=== PATIENT | male | born 1965 | race Caucasian/White ===

== ENCOUNTER 2020-10-18 09:00 | Outpatient (RCR) | payer MEDICARE, MEDICAID, SELFPAY | END 2020-10-20 23:55 | disposition home or self-care (01) | LOC: HO.PAOS 09:00 | PROVIDERS: Visit Provider Psychologist | DX: F43.10 Post-traumatic stress disorder, unspecified (principal); F42.9 Obsessive-compulsive disorder, unspecified; F31.75 Bipolar disorder, in partial remission, most recent episode depressed | CPT/HCPCS: 90834 ==

== ENCOUNTER → 2022-11-15 15:56 | Outpatient (BNVA) | payer OTHER, SELFPAY | PROVIDERS: PCP Pediatrics; Visit Provider Psychiatry & Neurology Psychiatry | DX: F42.9 Obsessive-compulsive disorder, unspecified (principal); F32.5 Major depressive disorder, single episode, in full remission | CPT/HCPCS: 99212 ==

== ENCOUNTER → 2023-05-02 14:00 | Outpatient (BNVA) | payer OTHER, SELFPAY | PROVIDERS: Visit Provider Psychiatry & Neurology Psychiatry | DX: F42.9 Obsessive-compulsive disorder, unspecified (principal); F41.1 Generalized anxiety disorder; F32.5 Major depressive disorder, single episode, in full remission | CPT/HCPCS: 99212 ==

== ENCOUNTER 2024-03-11 13:06 | Outpatient (AMB) | payer OTHER, SELFPAY ==
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
== END 2024-03-11 14:30 | disposition home or self-care (01) ==
LOC: HO.HOP 13:06
PROVIDERS: PCP Pediatrics; Visit Provider Psychiatry & Neurology Psychiatry
DX: F41.1 Generalized anxiety disorder (principal); F42.9 Obsessive-compulsive disorder, unspecified
CPT/HCPCS: 99214

== ENCOUNTER → 2024-03-11 13:06 | Outpatient (BNVA) | payer OTHER, SELFPAY | PROVIDERS: PCP Pediatrics; Visit Provider Psychiatry & Neurology Psychiatry | DX: F32.A Depression, unspecified (principal); F41.1 Generalized anxiety disorder; F42.9 Obsessive-compulsive disorder, unspecified | CPT/HCPCS: 99212 ==

== ENCOUNTER 2024-07-08 14:10 | Outpatient (AMB) | payer OTHER, SELFPAY ==
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
== END 2024-07-08 15:03 | disposition home or self-care (01) ==
LOC: HO.HOP 14:11
PROVIDERS: PCP Pediatrics; Visit Provider Psychiatry & Neurology Psychiatry
DX: F41.1 Generalized anxiety disorder (principal); F32.5 Major depressive disorder, single episode, in full remission; F42.9 Obsessive-compulsive disorder, unspecified
CPT/HCPCS: 90833; 99213

== ENCOUNTER → 2024-07-08 14:10 | Outpatient (BNVA) | payer OTHER, SELFPAY | PROVIDERS: PCP Pediatrics; Visit Provider Psychiatry & Neurology Psychiatry | DX: F41.1 Generalized anxiety disorder (principal); F32.5 Major depressive disorder, single episode, in full remission; F42.9 Obsessive-compulsive disorder, unspecified; Z79.899 Other long term (current) drug therapy | CPT/HCPCS: 99212 ==

== ENCOUNTER 2024-10-07 13:55 | Outpatient (AMB) | payer OTHER, SELFPAY ==
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
== END 2024-10-07 15:19 | disposition home or self-care (01) ==
LOC: HO.HOP 13:55
PROVIDERS: PCP Pediatrics; Visit Provider Psychiatry & Neurology Psychiatry
DX: F42.9 Obsessive-compulsive disorder, unspecified (principal); F41.1 Generalized anxiety disorder; F32.5 Major depressive disorder, single episode, in full remission
CPT/HCPCS: 90833; 99213

== ENCOUNTER → 2024-10-07 13:55 | Outpatient (BNVA) | payer OTHER, SELFPAY | PROVIDERS: PCP Pediatrics; Visit Provider Psychiatry & Neurology Psychiatry | DX: F42.9 Obsessive-compulsive disorder, unspecified (principal); F41.1 Generalized anxiety disorder; F32.5 Major depressive disorder, single episode, in full remission; Z71.89 Other specified counseling | CPT/HCPCS: 99212 ==

== ENCOUNTER 2025-06-11 11:13 | Outpatient (AMB) | payer OTHER, SELFPAY ==
--- OUTSIDE RECORDS SUMMARY | 2025-06-11 11:19 | XMS_ITS | Encounter Summary ---
Author Organization [facility] Address [address] [place] [address] Care Team Providers Care Facilities Mechanical Design Engineer Name Role Phone Kaiden Garber MD Primary Care Provider [phone] Encounter Details Date Type Department Care Team (Late st Contact Info) Description 10/13/2024 Lab Requisition [facility] - Main Lab [address] [facility] [employer] [place] [address] Sandhya Laurent MD [address] [place] [id number] Anogenital (venereal) warts Social History Tobacco Use Types Packs/Day Years Used Date Smoking Tobacco: Never Smokeless Tobacco: Never Alcohol Use Standard Drinks/Week Comments Yes 0 (1 standard drink = 0.6 oz pur e alcohol) Sex and Gender Information Value Date Recorded Sex Assigned at Not on file Legal Sex Male 8:38 PM EST Gender Identity Not on file Sexual Orientation Not on file documented as of this encounter Plan of Treatment Not on file documented as of this encounter Procedures Procedure Name Priority Date/Time Associated Diagnosis Comments THINPREP CYTOLOGY WITH HPV, ANAL Routine 10/09/2024 4:21 PM EST Anogenital (venereal) warts NON-GYNECOLOGIC CYTOLOGY Routine 10/09/2024 4:21 PM EST Anogenital (venereal) warts documented in this encounter Results * Thinprep cytology with HPV, anal (10/09/2024 4:21 PM EST) Scan Result See Scanned Result 10/20/2024 3:47 PM EST EXTERNAL LAB (NON-INTERFAC ED) Other Anal structure / Unknown 10/09/2024 4:21 PM EST 10/19/2024 2:41 PM EST Narrative EXTERNAL LAB (NON-INTERFACED) - 10/20/2024 3:47 PM EST See linked case [id number] Sandhya Laurent MD LAB PATHOLOGY ORDERABLES Final Result EXTERNAL LAB (NON-INTERFACED) * Non-gynecologic cytology (10/09/2024 4:21 PM EST) Final Diagnosis Specimen sent to [facility] for Anal cytology with HPV CoTest. Their interpretation is as follows: Anal, swab (ThinPrep): Specimen processed and examined but unsatisfactory for evaluation of epithelial abnormality because of: Scant cellularity. Disclaimer This test has been modified from the flakeboard line tender's instructions. Its performance characteristics were determined by [facility] in a manner consistent with CLIA requirements. This test has not been cleared or approved by the U.S. Food and Drug Administration Report signed electronically by: Aurora Dunham M.D. on Oct 19 2024 at 14:59 at [facility], [address] [place] [address] (CLIA [id number]) HPV Anal Detect/Genotyping , PCR: High Risk HPV testing results are NEGATIVE. See specific genotype results below. HPV with Genotyping, PCR, ThinPrep: HPV High Risk Type 16, PCR: NEGATIVE HPV High Risk Type 18, PCR: NEGATIVE HPV other High Risk types, PCR: NEGATIVE Other High Risk HPV types include: 31, 33, 35, 39, 45, 51, 52, 56, 58, 59, 66, and 68 This test was ordered in the context of a [facility] Non-NARCOTICS AND/OR VICE DETECTIVE Cytology case; this result should be interpreted within the context of the Non-NARCOTICS AND/OR VICE DETECTIVE cytology report. Resulted Oct 16, 2024 at 15:02 by [facility] [place], [address] [place] [address] (CLIA [id number]) Full report attached. 10/20/2024 4:03 PM EST [facility] Gross Description Demond Mejia, : RECD 1 TP VIAL. 10/20/2024 4:03 PM EST [facility] Disclaimer Unless otherwise specified, all tissue is 10% NB formalin fixed and paraffin embedded. Technical cytopathology services provided by [facility], at [address] [place] [address] (CLIA # [id number]/Romana Moyer MD, Bearing Inspector.) 10/20/2024 4:03 PM EST [facility] Other Anal structure / Unknown 10/09/2024 4:21 PM EST 10/13/2024 2:57 PM EST us Sandhya Laurent MD LAB CYTOLOGY ORDERABLES F inal Result [facility] [address] [place] [address], documented in this encounter Visit Diagnoses Diagnosis Anogenital (venereal) warts documented in this encounter Care Teams Facilities Mechanical Design Engineer Relationship Specialty Start Date End Date Kaiden Garber MD [address] [place] [id number] PCP - General Internal Medicine 12/16/15 documented as of this encounter
--- OUTSIDE RECORDS SUMMARY | 2025-06-11 11:19 | XMS_ITS | Clinical Summary ---
Author Organization [facility] Address [address] [place] [address] Care Team Providers Care Internet Architect Name Role Phone Anuj Medina MD Primary Care Provider [phone] Medications * This document contains information received from the source organization and may not represent a complete record from that organization. No known medications Active Problems No known active problems Social History Tobacco Use Types Packs/Day Years Used Date Smoking Tobacco: Never Alcohol Use Standard Drinks/Week Comments Not Asked 0 (1 standard drink = 0.6 oz pur e alcohol) Sex and Gender Information Value Date Recorded Sex Assigned at Not on file Legal Sex Male 4:14 PM EDT Gender Identity Not on file Sexual Orientation Not on file Last Filed Vital Signs Vital Sign Reading Time Taken Comments Blood Pressure 118/85 04/21/2014 12:03 PM EDT Pulse 92 04/21/2014 12:03 PM EDT Temperature - - Respiratory Rate - - Oxygen Saturation - - Inhaled Oxygen Concentration - - Weight 83.9 kg (185 lb) 04/21/2014 12:03 PM EDT Height 182.9 cm (6') 04/21/2014 12:03 PM EDT Body Mass Index 25.09 04/21/2014 12:03 PM EDT Plan of Treatment Health Maintenance Due Date Last Done Comments Hepatitis C Screening 1965 DTaP/Tdap/Td (1 - Tdap) 1982 Pneumococcal 50+ years (1 of 1 - PCV) 2014 Zoster (Shingrix) (1 of 2) 2014 COVID-19 Vaccine ( - 2023-2 5 season) 2024 Influenza (#1) 2025 RSV (1 - 1-dose 75+ series) 2039 HPV Vaccine (No Doses Required) Completed Hep A Aged Out No longer eligi ble based on patient's age to complete this topic Hep B Aged Out No longer eligi ble based on patient's age to complete this topic Hib Aged Out No longer eligi ble based on patient's age to complete this topic Meningococcal ACWY Aged Out No longer eligible based on patient's age to complete this topic Zoster (Zostavax) Discontinued Insurance * Guarantor: [id number] [facility] Account Type Relation to Patient Date of Phone Billing Address [employer] [address] [place] [address] WORK[employer]ENSATION * Guarantor: [employer] Account Type Relation to Patient Date of Phone Billing Address Personal/Family [address] [address] Care Teams Internet Architect Relationship Specialty Start Date End Date Anuj Medina MD [facility] [address] [place] [address] PCP - General Internal Medicine 05/07/14
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
== END 2025-06-11 11:52 | disposition home or self-care (01) ==
LOC: HO.HOP 11:13
PROVIDERS: PCP Pediatrics; Visit Provider Psychiatry & Neurology Psychiatry
DX: F42.9 Obsessive-compulsive disorder, unspecified (principal); F32.5 Major depressive disorder, single episode, in full remission; F41.1 Generalized anxiety disorder; I47.10 Supraventricular tachycardia, unspecified
CPT/HCPCS: 90833; 99213

== ENCOUNTER → 2025-06-11 11:13 | Outpatient (BNVA) | payer OTHER, SELFPAY | PROVIDERS: PCP Pediatrics; Visit Provider Psychiatry & Neurology Psychiatry | DX: F32.5 Major depressive disorder, single episode, in full remission (principal); I47.10 Supraventricular tachycardia, unspecified; F42.9 Obsessive-compulsive disorder, unspecified | CPT/HCPCS: 99212 ==

== ENCOUNTER 2025-09-20 11:17 | Outpatient (AMB) | payer OTHER, SELFPAY ==
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
--- OUTSIDE RECORDS SUMMARY | 2025-09-20 13:35 | XMS_ITS | Encounter Summary ---
Author Organization [facility] Address [address] [place] [address] Care Team Providers Care Mechanical Test Technician Name Role Phone Kaiden Garber MD Primary Care Provider [phone] Encounter Details Date Type Department Care Team (Late st Contact Info) Description 10/09/2024 Lab Requisition [facility] - Main Lab [address] [facility] [place] [address] Sandhya Laurent MD [address] [place] [address] Contact with and (suspected) exposure to infections with a predominantly sexual mode of transmission Social History Tobacco Use Types Packs/Day Years [...] Procedure Name Priority Date/Time Associated Diagnosis Comments CULTURE WOUND WITH GRAM STAIN Routine 10/09/2024 12:00 AM EST Contact with and (suspected) exposure to infections with a predominantly sexual mode of transmission CHLAMYDIA TRACHOMATIS AND NEISSERIA GONORRHOEAE PCR Routine 10/09/2024 12:00 AM EST Contact with and (suspected) exposure to infections with a predominantly sexual mode of transmission CULTURE FUNGAL, OTHER Routine 10/09/2024 12:00 AM EST Contact with and (suspected) exposure to infections with a predominantly sexual mode of transmission documented in this encounter Results * Culture fungal, other (10/09/2024 12:00 AM EST) Culture, Fungus Negative for Fungus after 4 Weeks 11/05/2024 9:29 AM EST [facility] Swab Rectum structure / Unknown 10/09/2024 10/09/2024 6:37 PM EST Sandhya Laurent MD LAB MICROBIOLOGY - GENERA L ORDERABLES Final Result Performing Organization Address [facility]/ZIP Co de Phone Number [facility] [address] [place] [address], [place] [phone] * (ABNORMAL) Culture wound with gram stain (10/09/2024 12:00 AM EST) Culture, Wound No pathogens isolated. 10/12/2024 10:40 AM EST [facility] Gram Stain Result Rare Polymorphonuclear leukocytes(A) 10/12/2024 10:40 AM EST [facility] Gram Stain Result Rare Epithelial cells(A) 10/12/2024 10:40 AM EST [facility] Gram Stain Result Moderate Gram positive cocci in pairs and clusters(A) 10/12/2024 10:40 AM EST [facility] Gram Stain Result Few Gram positive bacilli(A) 10/12/2024 10:40 AM EST [facility] Swab Rectum structure / Unknown 10/09/2024 10/09/2024 6:37 PM EST Narrative [facility] - 10/12/2024 10:40 AM EST Mixed normal skin june present Sandhya Laurent MD LAB MICROBIOLOGY - GENERA L ORDERABLES Final Result Performing Organization Address City/[facility]/ZIP Co de Phone Number [facility] [address] [place] [address], [place] [phone] * Chlamydia trachomatis and Neisseria gonorrhoeae molecular study (10/09/2024 12:00 AM EST) Neisseria gonorrhoeae PCR Negative Negative LAB MOLECULAR DIAGNOSTICS METHOD 05/25/2025 8:47 AM EDT [facility] Comment: This specimen type has not been evaluated for this method. Interpret results with caution. Chlamydia trachomatis PCR Negative Negative LAB MOLECULAR DIAGNOSTICS METHOD 05/25/2025 8:47 AM EDT [facility] Comment: This specimen type has not been evaluated for this method. Interpret results with caution. Swab Rectum structure / Unknown 10/09/2024 10/09/2024 6:37 PM EST us Sandhya Laurent MD LAB MICROBIOLOGY - GENERA L ORDERABLES Edited Result - Final [facility] [address] [place] [address], documented in this encounter Visit Diagnoses Diagnosis Contact with and (suspected) exposure to infections with a predominantly sexual mode of transmission documented in this encounter Care Teams Mechanical Test Technician Relationship Specialty Start Date End Date Kaiden Garber MD [address] [place] [id number] PCP - General Internal Medicine 12/16/15 documented as of this encounter
--- OUTSIDE RECORDS SUMMARY | 2025-09-20 13:35 | XMS_ITS | Clinical Summary ---
Author Organization [facility] Address [address] [place] [address] Care Team Providers Care Retirement Benefits Specialist Name Role Phone Anuj Medina MD Primary Care Provider [phone] Medications * This document contains information received [...] of 2) 2014 COVID-19 Vaccine ( - 2024-2 6 season) 2025 Influenza (#1) 2025 RSV (1 - 1-dose [...] topic Zoster (Zostavax) Discontinued Insurance * Guarantor: [id number] [facility] Account Type Relation to Patient Date of Phone Billing Address Worker's Comp [address] [place] [address] WORKERS COMPENSATION * Guarantor: LITZY STRINGER Account Type Relation to Patient Date of Phone Billing Address Personal/Family [address] [address] Care Teams Retirement Benefits Specialist Relationship Specialty Start Date End Date Anuj Medina MD [facility] [address] [place] [address] PCP - General Internal Medicine 05/07/14
--- OUTSIDE RECORDS SUMMARY | 2025-09-20 13:35 | XMS_ITS | Encounter Summary ---
Author Organization [facility] Address [address] [place] [address] Care Team Providers Care Fresh Work Inspector Name Role Phone Kaiden Garber MD Primary Care Provider [phone] Encounter Details Date Type Department Care Team (Late st Contact Info) Description 10/13/2024 Lab Requisition [facility] - Main Lab [address] [facility] [address] [place] [address] Sandhya Laurent MD [address] [place] [id number] Anogenital (venereal) warts Social History Tobacco Use [...] 10/20/2024 3:47 PM EST See linked case [id number] Sandhya Laurent MD LAB PATHOLOGY ORDERABLES Final Result EXTERNAL LAB (NON-INTERFACED) * Non-gynecologic cytology (10/09/2024 4:21 PM EST) Final Diagnosis Specimen sent to [facility] for Anal cytology with HPV CoTest. Their interpretation is as follows: Anal, swab (ThinPrep): Specimen processed and examined but unsatisfactory for evaluation of epithelial abnormality because of: Scant cellularity. Disclaimer This test has been modified from the certified control systems technician's instructions. Its performance characteristics were determined by [facility] in a manner consistent with CLIA requirements. This test has not been cleared or approved by the U.S. Food and Drug Administration Report signed electronically by: Aurora Dunham M.D. on Oct 19 2024 at 14:59 at [facility], [address] [place] [address] (CLIA [id number]) HPV Anal Detect/Genotyping , PCR: High Risk [...] was ordered in the context of a [facility] Non-SERVICE TRAINER Cytology case; this result should be interpreted within the context of the Non-SERVICE TRAINER cytology report. Resulted Oct 16, 2024 at 15:02 by [facility] [employer], [address] [place] [address] (CLIA [id number]) Full report attached. 10/20/2024 4:03 PM EST [facility] Gross Description Demond Mejia, : RECD 1 TP VIAL. 10/20/2024 4:03 PM EST [facility] Disclaimer Unless otherwise specified, all tissue is 10% NB formalin fixed and paraffin embedded. Technical cytopathology services provided by [facility], at [address] [place] [address] (CLIA # [id number]/Romana Moyer MD, Chief Operator Lock Tender.) 10/20/2024 4:03 PM EST [facility] Other Anal structure / Unknown 10/09/2024 4:21 PM EST 10/13/2024 2:57 PM EST us Sandhya Laurent MD LAB CYTOLOGY ORDERABLES F inal Result [facility] [address] [place] [address], documented in this encounter Visit Diagnoses Diagnosis Anogenital (venereal) warts documented in this encounter Care Teams Fresh Work Inspector Relationship Specialty Start Date End Date Kaiden Garber MD [address] [place] [phone] PCP - General Internal Medicine 12/16/15 documented as of this encounter
--- OUTSIDE RECORDS SUMMARY | 2025-09-20 13:35 | XMS_ITS | Clinical Summary ---
Author Organization [facility] [address] [place] [address] [place] [phone] Phone Care Team Providers Care Warehouse Shift Supervisor Name Role Phone Kaiden Garber MD Primary Care Provider [phone] Allergies Active Allergy Reactions Criticality Noted Date Comments Sulfamethoxazole-Trimethoprim 2007 rash Medications albuterol HFA (PROAIR HFA ; PROVENTIL HFA ; VENTOLIN HFA) 90 mcg/actuation inhaler Inhale 2 Puffs into the lungs 4 times daily as needed for Cough, Wheezing or Shortness of Breath. 0 Active clomiPRAMINE (ANAFRANIL) 50 mg capsule TAKE 2 CAPSULES BY MOUTH EVERY DAY AT BEDTIME 1 Active LORazepam (ATIVAN) 1 mg tablet TAKE 1/2 TO 1 TABLET BY MOUTH ONCE DAILY NEEDED 1 Active metoprolol succinate (TOPROL-XL) 100 mg 24 hr tablet TAKE 1 TABLET BY MOUTH EVERY DAY 3 Active GENERIC EXTERNAL MEDICATION daily. Discovy Acti ve Active Problems Problem Noted Date Diagnosed Date Difficulty concentrating 09/03/2021 Overview (11/30/2024): neuropsych 08/31 Normal. ?treat ADD Overweight (BMI 25.0-29.9) 11/16/2019 Hypersomnolence 11/03/2018 Obstructive sleep apnea 08/22/2018 Overview (11/30/2024): [facility] Polysomnogram: Date 08/19/2018; Wt 190# SE 68%; SM 84%; REM 20%; RDI 12 (AHI 10), REM (RDI 23 - AHI 22), Central apneas 0; Obstructive apneas 0; Mixed apneas 0; hypopneas 63; RERAs 13; average oxygen saturation 95% (lowest 87% - without saturations <88% for 5% or more of study); PLMs 65. [facility] Polysomnogram treatment study. Date 10/31/2018 . SE 81 % SM 91 %; spent 30 % of the study in REM. On CPAP @ 4; RDI 2.1 (AHI 1.2), Central apneas 1; Obstructive apneas 0; Mixed apneas 0; hypopneas 8; RERAs 6; and, average oxygen saturation was 95%. For the entire study, PLMs ~81. - Obstructive Sleep Apnea - mild overall and moderate in REM; all hypopneas; without sleep related hypoventilation by 2018 polysomnogram. Rx Cpap. Did not start PLMD (periodic limb movement disorder) 8 Erectile dysfunction 12/16/2015 Pure hypercholesterolemia 08/25/2008 Anxiety 02/25/2008 Overview (11/30/2024): [facility] Meño Olivares[facility] ([facility] Dr. Rigo Valdez PSVT (paroxysmal supraventri cular tachycardia) ([facility] V24) 02/25/2008 Overview (11/30/2024): Dr. Witt Takes beta-bernadine 08/23 - negative Holter, defers ablation Immunizations Immunization Administration Dates Next Due Hepatitis B (Etvrlhx-N-Aarax , Recombivax HB-Adult) 19yo and older 12/31/2023,07/01/2023,05/31/2023,2018,11/26/2018,10/21/2018,01/18/2003,1 ,07/20/2002 Influenza trivalent, 0.5mL, preservative free (Fluarix; FluLaval; Fluzone) ages 6mo and older (Afluria) 3 years and older 07/20/2019,09/11/2016,08/18/2015,2013,08/28/2013,08/06/2012,08/11/2011,1 11/12/2009,11/02/2009,08/25/2008 Influenza, Unspecified 08/14/2021,10/04/2020, Pfizer SARS-CoV-2 COVID-19, mRNA, LNP-S, preservative free 03/07/2023,09/09/2022,06/05/2022,2020,03/13/2021,02/20/2021 Td Tetanus diptheria (Tdvax) 7yo and older 04/28/2018 Tdap Tetanus diptheria acell ular pertussis (Boostrix; Adacel) 7yo and older 02/25/2008 Zoster recombinant (Shingrix ) 19yo and older 10/04/2020,07/20/2020 Surgical History Surgery Date Site/Laterality Comments COLONOSCOPY 08/11/2012 PROCEDURE: HISTORICAL COLONOSCOPY; COMMENT: normal COLONOSCOPY 09/08/2018 PROCEDURE: HISTORICAL COLONOSCOPY; COMMENT: normal. Medical History Medical History Date Comments SVT (supraventricular tachyc ardia) ([facility] V24) 02/25/2008 DX:SVT (supraventricular tac hycardia) ([facility]) Anxiety 02/25/2008 DX:Anxiety Hemorrhage of gastrointestin al tract, unspecified 06/23/2012 DX:Hemorrhage of gastrointes tinal tract, unspecified; COMMENT: Dr. Story - 06/22 - colonoscopy normal Headache associated with sex ual activity 11/16/2011 DX:Headache associated with sexual activity Kidney stones 11/16/2011 DX:Kidney stones Transient global amnesia 02/28/2011 DX:Rhoades sient global amnesia; COMMENT: Dr. Beasley Venous insufficiency 09/12/2010 DX:Venous i nsufficiency Family History Medical History Relation Name Comments Other: cancer,other Maternal Grandmother ? primary Alzheimer's disease Mother Asthma Mother Coronary artery disease Mother Hypertension Mother Ovarian cancer Mother Other: skin cancer Other Relation Name Status Comments Father Alive Maternal Grandmother Mother (Age 72) Other Social History Tobacco Use Types Packs/Day Years Used Date Smoking Tobacco: Never Smokeless Tobacco: Never Alcohol Use Standard Drinks/Week Comments Yes 0 (1 standard drink = 0.6 oz pur e alcohol) Sex and Gender Information Value Date Recorded Sex Assigned at Not on file Legal Sex Male 8:38 PM EST Gender Identity Not on file Sexual Orientation Not on file Obstetrics History Last Filed Vital Signs Vital Sign Reading Time Taken Comments Blood Pressure 130/70 09/23/2023 10:30 AM EST Pulse 102 09/23/2023 10:30 AM EST Temperature - - Respiratory Rate - - Oxygen Saturation - - Inhaled Oxygen Concentration - - Weight 88.5 kg (195 lb) 12/12/2023 2:22 PM EST Height 177.8 cm (5' 10 ) 12/12/2023 2:22 PM EST Body Mass Index 27.98 12/12/2023 2:22 PM EST Plan of Treatment Health Maintenance Due Date Last Done Comments Pneumococcal Vaccine: 50+ Years (1 of 1 - PCV) 2014 Medicare Annual Wellness Visit 10/20/2022 Social Influencers of Health Screening 10/20/2022 Depression Screening 11/11/2024 Influenza Vaccine (#1) 2025 , 08/15/2023, 08/31/2022, Additional history exists Colorectal Cancer Screening: Colonoscopy 09/08/2028 09/08/2018 Cholesterol Screening (Lipid Panel) 12/12/2028 12/12/2023 DTaP,Tdap,and Td Vaccines (4 - Td or Tdap) 02/15/2034 02/16/2024, 04/28/2018, 02/25/2008 RSV Immunization Adult Patients (1 - 1-dose 75+ series) 2039 Zoster Vaccines Completed 10/04/2020, 07/20/2020 Hepatitis B Vaccines Completed 12/31/2023, 07/01/2023, 05/31/2023, Additional history exists COVID-19 Vaccine Completed 07/09/2024, 03/2023, 03/07/2023, Additional history exists HIV Screening Completed 06/11/2025, 08/0 11/2024, 06/13/2022 Hepatitis C Screening Completed 06/11/2025, 022 HIB Vaccines Aged Out No longer eligi ble based on patient's age to complete this topic HPV Vaccines Aged Out No longer eligi ble based on patient's age to complete this topic Hepatitis A Vaccines Aged Out No long er eligible based on patient's age to complete this topic IPV Vaccines Aged Out No longer eligi ble based on patient's age to complete this topic MMR Vaccines Aged Out No longer eligi ble based on patient's age to complete this topic Meningococcal ACWY Vaccine Aged Out N o longer eligible based on patient's age to complete this topic Meningococcal B Vaccine Aged Out No l onger eligible based on patient's age to complete this topic RSV Immunization Patients Under 20 months Aged Out No longer eligible based on patient's age to complete this topic Varicella Vaccines Aged Out No longer eligible based on patient's age to complete this topic Procedures Procedure Name Priority Date/Time Associated Diagnosis Comments HEPATITIS C ANTIBODY Routine 06/11/2025 12:56 PM EDT Exposure to HIV HIV 1 MOLECULAR STUDY QUANTITATIVE Routine 06/11/2025 12:56 PM EDT Exposure to HIV LIPID PANEL Routine 12/12/2023 HM COLONOSCOPY Routine 09/08/2018 from Last 3 Months or Most Recently Relevant to Health Maintenance Results * Hepatitis C antibody (06/11/2025 12:56 PM EDT) Pathologist [facility] Hepatitis C Antibody Negative Negative LAB CHEMISTRY METHOD 06/11/2025 4:32 PM EDT [facility] Blood Venous blood specimen / Unknown Venipuncture / Unknown 06/11/2025 12:56 PM EDT 06/11/2025 12:56 PM EDT Sandhya Laurent MD LAB BLOOD ORDERABLES Ainsley l Result [facility] [address] [place] [address], [place] [phone] * HIV 1 molecular study quantitative (06/11/2025 12:56 PM EDT) Pathologist [facility] HIV-1 RNA Interpretation Not Detected Not Detected LAB MOLECULAR DIAGNOSTICS METHOD 06/15/2025 2:12 PM EDT [facility] Comment:HIV RNA not detected , unable to report quantitative results. Blood Venous blood specimen / Unknown Venipuncture / Unknown 06/11/2025 12:56 PM EDT 06/11/2025 12:56 PM EDT Sandhya Laurent MD LAB BLOOD ORDERABLES Ainsley l Result [facility] [address] [place] [address], [place] [phone] * (ABNORMAL) Lipid panel (12/12/2023) LDL/HDL Ratio 7(A) 0 - 4 Triglycerides 380(A) 0 - 150 mg/dL Cholesterol 289(A) 0 - 200 mg/dL HDL 41 >=40 mg/dL LDL Cholesterol 172(A) 0 - 100 mg/dL Blood Venous blood specimen / Unknown Historical Provider LAB BLOOD ORDERABLES Ainsley l Result * Colonoscopy (09/08/2018) Colonoscopy abstracted, no interpretation Anatomical Region Laterality Modality Other Historical Provider HEALTH MAINTENANCE Final Result from Last 3 Months or Most Recently Relevant to Health Maintenance Insurance [facility] MEDIC[facility] Member Subscriber Plan / Payer (Ef fective 2022-Present) Name:LITZY MELENDEZ Relation to Subscriber:Self Name:Litzy Melendez Payer ID:[id number] Group ID:[id number] Type:Not on file Address: [place] [facility] [place] [id number] Care Teams Warehouse Shift Supervisor Relationship Specialty Start Date End Date Kaiden Garber MD [address] [place] [address] PCP - General Internal Medicine 12/16/15
--- OUTSIDE RECORDS SUMMARY | 2025-09-20 13:35 | XMS_ITS | Encounter Summary ---
Author Organization [facility] Address [address] [place] [address] Care Team Providers Care Collar Packer Name Role Phone Kaiden Garber MD Primary Care Provider [phone] Encounter Details Date Type Department Care Team (Late st Contact Info) Description 10/12/2024 Lab Requisition [facility] [address] [facility] [place] [id number] Sandhya Laurent MD [address] [place] [id number] Anogenital (venereal) warts Social History Tobacco Use [...] as of this encounter Plan of Treatment Scheduled Orders Name Type Priority Associated Diagnoses Orde r Schedule Thinprep cytology with HPV, anal Pathology and Cytology Routine Anogenital (venereal) warts Ordered: 10/12/2024 documented as of this encounter Visit Diagnoses Diagnosis Anogenital (venereal) warts documented in this encounter Care Teams Collar Packer Relationship Specialty Start Date End Date Kaiden Garber MD [address] [place] [phone] PCP - General Internal Medicine 12/16/15 documented as of this encounter
== END 2025-09-20 12:04 | disposition home or self-care (01) ==
LOC: HO.HOP 11:17
PROVIDERS: PCP Pediatrics; Visit Provider Psychiatry & Neurology Psychiatry
DX: F42.9 Obsessive-compulsive disorder, unspecified (principal); F41.1 Generalized anxiety disorder; F33.41 Major depressive disorder, recurrent, in partial remission
CPT/HCPCS: 90833; 99213

== ENCOUNTER → 2025-09-20 11:17 | Outpatient (BNVA) | payer OTHER, SELFPAY | PROVIDERS: PCP Pediatrics; Visit Provider Psychiatry & Neurology Psychiatry | DX: F42.9 Obsessive-compulsive disorder, unspecified (principal); F41.1 Generalized anxiety disorder; F33.41 Major depressive disorder, recurrent, in partial remission; Z79.899 Other long term (current) drug therapy | CPT/HCPCS: 99212 ==